=== PATIENT | female | born 1975 | race Two or more races ===

== ENCOUNTER 2024-08-13 21:42 | Emergency (ER) | payer MEDICAID, SELFPAY ==
[2024-08-13 22:15] VITALS: BP 130/80; PULSE 70; RESP 18; TEMP 37; O2SAT 97; BMI 30.7
--- NOTE | 2024-08-13 22:30 | XR_ITS ---
Examination: CT abdomen and pelvis without contrast. Coronal 3-D reconstructions. Sagittal 2-D reconstructions. Date and time of exam:August 05, 2024 10:50 PM Indications: Right upper abdominal pain hematuria beginning 6 days ago CTDI: vol (mGy): 7.43 DLP: (mGycm): 369 Technique: Axial images of the abdomen have been obtained, 3 mm slice thickness Intravenous contrast material has not been administered. Low dose protocols were performed. One or more of the following dose reduction techniques were used; automated exposure control, adjustment of the mA and/or KV according to patient size, use of iterative reconstruction technique. Findings: No focal liver or splenic lesions Extensive staghorn bilateral renal calculi, no hydronephrosis or ureteral calculi Normal appendix No bowel obstruction No diverticulitis No bladder mass or bladder calculi Moderate disc narrowing at the lower 2 lumbar levels Impression: Extensive staghorn bilateral renal calculi, no hydronephrosis or ureteral calculi
--- NOTE | 2024-08-13 22:31 | PD.EDRME ---
Rapid Medical Screening Exam [facility] Arrival date/time: 08/13/24 21:42 49F with history of kidney stones presents to ED with 2 days of R flank pain and hematuria. Patient denies dysuria. Patient is already taking Flomax w/o relief. Chief Complaint: Back Pain/Injury Vital signs: Vital Signs Temperature 98.6 F 08/13/24 22:15 Pulse Rate 70 08/13/24 22:15 Respiratory Rate 18 08/13/24 22:15 Blood Pressure 130/80 08/13/24 22:15 Pulse Oximetry (%) 97 08/13/24 22:15 Oxygen Delivery Method Room Air 08/13/24 22:15
[2024-08-13 23:04] LABS: Collection Type, Urine Clean Catch
[2024-08-13 23:19] LABS: Basophils % (Auto) 0 % (0-2.5); Eosinophils # (Auto) 0.7 Thou/mm3 (0.0-0.5); Eosinophils % (Auto) 8 % (0-10); Hematocrit 34.7 % (36.0-46.0); Hemoglobin 12.2 g/dL (12.0-16.0); Immature Granulocytes % (Auto) 0 % (0-0); Immature Granulocytes Auto 0.03 Thou/mm3 (0.00-0.00); Lymphocytes # (Auto) 2.1 Thou/mm3 (1.0-4.8); Lymphocytes % (Auto) 22 % (10-50); Mean Corpuscular HGB Conc 35.2 g/dl (31.0-37.0); Mean Corpuscular Volume 94 fL (80-100); Monocytes # (Auto) 0.7 Thou/mm3 (0.0-0.8); Monocytes % (Auto) 8 % (0-12); Neutrophils # (Auto) 5.7 Thou/mm3 (1.8-7.7); Neutrophils % (Auto) 62 % (37-80); Nucleated Red Blood Cell % 0 /100 WBC (0); Platelet Count 267 Thou/mm3 (140-440); RDW Standard Deviation 42.1 fL (36.4-46.3); White Blood Count 9.3 Thou/mm3 (3.6-11.0)
[2024-08-13] MEDS: KETOROLAC INJ 60 MG/2 ML VIAL IM (23:19)
[2024-08-13 23:25] LABS: HCG Qualitative,Urine Negative
[2024-08-13 23:49] VITALS: BP 131/72; PULSE 64; RESP 16; TEMP 36.9; O2SAT 97
[2024-08-13 23:50] LABS: Bilirubin,Urine Negative (Negative); Blood,Urine Negative (Negative); Clarity,Urine Clear (Clear/Hazy); Color,Urine Colorless (Lt Yel-Yel); Culture Indicated,Urine Not Indicated; Glucose, Urine Negative (Negative); Ketones,Urine Negative (Negative); Leukocyte Esterase,Urine Negative (Negative); Nitrite,Urine Negative (Negative); PH,Urine 6.5 (5.0-7.0); Protein,Urine Negative (Neg - Trace); RBC,Urine 2 /hpf (0-3); Specific Gravity,Urine 1.021 (1.001-1.035); Squamous Epithelial Cell,Urine 1 /hpf (0-5); Urobilinogen,Urine Negative mg/dL (0.0-1.0); WBC,Urine 1 /hpf (0-5)
[2024-08-14 00:18] LABS: Alanine Aminotransferase 11 U/L (10-49); Albumin, Serum 4.4 gm/dL (3.5-5.0); Albumin/Globulin Ratio 1.5 (1.2-2.2); Alkaline Phosphatase 103 U/L (46-116); Anion Gap 6 (7-16); Aspartate Amino Transferase 15 U/L (0-34); BUN/Creatinine Ratio 13 Ratio (12-20); Bilirubin,Total 0.5 mg/dL (0.3-1.2); Blood Urea Nitrogen 13 mg/dL (9-23); Calcium 9.4 mg/dL (8.3-10.6); Calcium (Corrected) 9.4 mg/dL (8.5-10.1); Carbon Dioxide 31.2 mMol/L (20.0-31.0); Chloride 105 mMol/L (98-107); Estimated Creatinine Clearance 60.6 mL/min (>60); Glucose 103 mg/dL (74-106); Lipase 51 U/L (12-53); Osmolality,Calculated 283 (275-295); Potassium 3.7 mMol/L (3.4-5.1); Sodium 142 mMol/L (136-145); Total Protein 7.4 gm/dL (5.7-8.2); eGFR > 60 See Note
--- NOTE | 2024-08-14 01:14 | EDNOTE_ITS ---
ED Back Injury Pain RME/HPI General Chief Complaint: Back Pain/Injury Stated Complaint: RIGHT SIDED BACK PAIN Time Seen by Provider: 08/13/24 22:56 Arrival date/time: 08/13/24 21:42 Limitations: no limitations RME / HPI RME / HPI Narrative: 08/13/24 21:42 49F with history of kidney stones presents to ED with 2 days of R flank pain and hematuria. Patient denies dysuria. Patient is already taking Flomax w/o relief. -------- Dr. Darden's Main ED Evaluation: 49yo male female with a history of HTN presents to the ED for a chief complaint of right flank pain x 1 day. The pain is sharp and nonradiating. She states is similar to her previous kidney stone pain in the past. She also complained of hematuria but no burning in her urine No fevers. Patient states her pain is improved after taking Flomax. Related Data Previous Rx's ?Medication ?Instructions ?Recorded ciprofloxacin HCl 500 mg tablet 500 mg PO BID #14 tabs 07/06/23 (Cipro) meloxicam 7.5 mg tablet 7.5 mg PO QDAY #14 tabs 06/17 07/09 Allergies Allergy/AdvReac Type Severity Reaction Status Date / Time No Known Allergies Allergy Verified 08/13/24 21:45 Review of Systems Review of Systems Systems Reviewed: All systems reviewed, normal except as documented ED Exam General Limitations: Present no limitations General appearance: Present alert and in no apparent distress Head Head exam: Present atraumatic Eye Eye exam: Present normal appearance, PERRL and EOMI ENT ENT exam: Present normal exam, normal oropharynx and mucous membranes moist Neck Neck exam: Present normal inspection, full ROM and trachea midline Chest Chest inspection: Present normal inspection and symmetric chest wall rise Respiratory Respiratory exam: Present normal lung sounds bilaterally Cardiovascular Cardiovascular exam: Present regular rate, normal rhythm and normal heart sounds Abdominal Exam Abdominal exam: Present soft and normal bowel sounds Extremities Exam Extremities exam: Present normal inspection and full ROM Back Exam Back exam: Present normal inspection and full ROM Neurological Exam Neurological exam: Present alert, oriented X3 and CN II-XII intact Psychiatric Psychiatric exam: Present normal affect and normal mood Skin Skin exam: Present warm, dry, intact and normal color Course Course Course Narrative: At this time the patient does not want any other medication. She states that she is comfortable with Toradol. She feels that this is her kidney stone. Quality Measures none Orders Category Date Time Status CT abdomen pelvis wo con Stat Exams 08/13/24 22:30 Completed CBC Stat Lab 08/13/24 23:00 Completed CMP [Comprehensive Metabolic Panel] Stat Lab 08/13/24 23:00 Completed HCG Qualitative,Urine Stat Lab 08/13/24 22:58 Completed Lipase Stat Lab 08/13/24 23:00 Completed PT [Prothrombin Time with INR] Stat Lab 08/14/24 01:20 Completed Urinalysis, C/S if Indicated Stat Lab 08/13/24 22:58 Completed Diazepam [Valium] Med 08/14/24 01:23 Discontinued 5 mg PO X1 ONE Ketorolac Inj [Toradol Inj] Med 08/13/24 22:30 Discontinued 60 mg IM X1 ONE Vital Signs Vital signs: Vital Signs Temperature 98.6 F 08/13/24 22:15 Pulse Rate 70 08/13/24 22:15 Respiratory Rate 18 08/13/24 22:15 Blood Pressure 130/80 08/13/24 22:15 Pulse Oximetry (%) 97 08/13/24 22:15 Oxygen Delivery Method Room Air 08/13/24 22:15 Back Pain / Injury Patient data External records reviewed:: [facility] previous records (Per chart review, patient has no relevant previous ED visits.) Clinical information provided by:: patient Social determinants that could affect healthcare access:: none Patient has the following chronic illnesses:: HTN How is presenting disease/condition affected by chronic disease/condition?: uneffected by Evaluation data The following diagnostics were reviewed and interpreted by me:: lab results and radiology exam(s) Lab and/or radiology exams considered but not ordered:: none Interpretation Summary: CBC is normal, CMP is normal, Lipase is normal, UA is unremarkable, HCG is negative, according to my interpretation. [facility] Report Signed Patient: PAOLA ROJAS Record#: [id number] Birthdate: 1975 Age/Sex: 49 / F Location: [facility] [place] Attending Dr: Ordering Physician: Jett Boston PA-C Date of Service: 08/13/24 Procedure(s): CT abdomen pelvis wo con Accession Number(s): [id number] cc: Dimas Horner MD; Jett Boston PA-C~ Examination: CT abdomen and pelvis without contrast. Coronal 3-D reconstructions. Sagittal 2-D reconstructions. Date and time of exam:August 05, 2024 10:50 PM Indications: Right upper abdominal pain hematuria beginning 6 days ago CTDI: vol (mGy): 7.43 DLP: (mGycm): 369 Technique: Axial images of the abdomen have been obtained, 3 mm slice thickness Intravenous contrast material has not been administered. Low dose protocols were performed. One or more of the following dose reduction techniques were used; automated exposure control, adjustment of the mA and/or KV according to patient size, use of iterative reconstruction technique. Findings: No focal liver or splenic lesions Extensive staghorn bilateral renal calculi, no hydronephrosis or ureteral calculi Normal appendix No bowel obstruction No diverticulitis No bladder mass or bladder calculi Moderate disc narrowing at the lower 2 lumbar levels Impression: Extensive staghorn bilateral renal calculi, no hydronephrosis or ureteral calculi Dictated By: Dimas Horner MD Signed By: <Electronically signed by Dimas Horner MD in [place]> 08/13/24 4181 Medications / Prescriptions Medications or Prescriptions considered but not ordered:: none Medication administrations:: Medication Administration History Discontinued Medications Diazepam (Diazepam 5 Mg Tablet) 5 mg PO X1 ONE Stop: 08/14/24 01:24 Last Admin: 08/14/24 02:02 Dose: Not Given Documented By: Non-Admin Reason: Patient Asleep Ketorolac Tromethamine (Ketorolac Inj 60 Mg/2 Ml Vial) 60 mg IM X1 ONE Stop: 08/13/24 22:31 Last Admin: 08/13/24 23:19 Dose: 60 mg Documented By: see above Consultations Consultation(s) initiated? (list below): No Diagnosis Differential diagnosis back pain/injury: renal colic, pyelonephritis and other (UTI) Most likely diagnosis given after review of the tests above:: see below Admission Indicated Admission indicated?: not indicated Admission Request Was there a request for admission?: No Disposition Plan Disposition Plan: Discharge Discharge Attestation Discharge Attestation: The patient and all family members were given an opportunity to ask questions and understood the discharge instructions. Discharge instructions specifically effects, indications for sooner follow up or return to the emergency department, and the expected course of current diagnosis. Patient condition: Stable Discharge Plan Prescriptions/Referrals Prescriptions/Med Rec: No Action ciprofloxacin HCl [Cipro] 500 mg tablet 500 mg PO BID Qty: 14 0RF meloxicam 7.5 mg tablet 7.5 mg PO QDAY Qty: 14 0RF Referrals: Pennie Armstrong FNP-C [Primary Care Provider] - In 1 week Patient/Caregiver Discharge Instructions Print Language: Ecuadorean
[2024-08-14 01:48] LABS: Prothrombin Time 10.8 Seconds (9.0-12.2)
[2024-08-14 03:28] VITALS: BP 118/60; PULSE 63; RESP 18; TEMP 36.4; O2SAT 97
== END 2024-08-14 03:29 | disposition home or self-care (01) ==
PROVIDERS: Physician Assistant; Emergency Provider Emergency Medicine; PCP Nurse Practitioner Family
DX: N20.0 Calculus of kidney (principal); I10 Essential (primary) hypertension; Z87.442 Personal history of urinary calculi
CPT/HCPCS: 36415; 74176; 80053; 81001; 81025; 83690; 85025; 85379; 85610; 85730; 96372; 99284; J1885